=== PATIENT | female | born 1970 | race Caucasian/White ===

== ENCOUNTER 2018-06-25 23:49 | Emergency (ER) | payer SELFPAY ==
[2018-06-26 01:18] LABS: BASO # 0.1 10^3/uL (0.0-0.2); BASO % 0.6 % (0.0-1.0); EOS % 0.2 % (0.0-3.0); HEMATOCRIT 45.3 % (36.0-47.0); HEMOGLOBIN 16.2 g/dl (12.0-15.5); IMMATURE GRANULOCYTE % 0.6 % (0-3.0); LYMPH # 1.5 10^3/uL (1.5-4.5); LYMPH % 12.6 % (24.0-44.0); MEAN CORPUSCULAR HEMOGLOBIN 33.8 pg (27.0-33.0); MEAN CORPUSCULAR HGB CONC 35.8 g/dl (32.0-36.5); MEAN CORPUSCULAR VOLUME 94.6 fl (80.0-96.0); MONO # 0.8 10^3/uL (0.0-0.8); NEUTROPHILS # 9.6 10^3/uL (1.8-7.7); PLATELET COUNT, AUTOMATED 309 10^3/uL (150-450); RED BLOOD COUNT 4.79 10^6/uL (4.00-5.40); RED CELL DISTRIBUTION WIDTH 12.3 % (11.5-14.5); WHITE BLOOD COUNT 12.1 10^3/uL (4.0-10.0)
[2018-06-26] MEDS: METOCLOPRAMIDE INJ 10MG/2ML VIAL (J2765) IV (01:25)
[2018-06-26] MEDS: NS 1,000 ML IV (01:26)
[2018-06-26] MEDS: MORPHINE 4 MG/ML 1ML VIAL/SYRINGE (J2270) IV (01:26)
[2018-06-26 01:29] LABS: ALBUMIN 3.7 GM/DL (3.2-5.2); ALBUMIN/GLOBULIN RATIO 0.79 (1.00-1.93); ALKALINE PHOSPHATASE 122 U/L (45-117); ALT/SGPT 27 U/L (12-78); ANION GAP 16 MEQ/L (8-16); AST/SGOT 32 U/L (7-37); BILIRUBIN,DIRECT 0.1 MG/DL (0.0-0.2); BILIRUBIN,TOTAL 0.6 MG/DL (0.2-1.0); BLOOD UREA NITROGEN 13 MG/DL (7-18); CALCIUM LEVEL 9.6 MG/DL (8.5-10.1); CARBON DIOXIDE LEVEL 23 MEQ/L (21-32); CHLORIDE LEVEL 96 MEQ/L (98-107); CREATININE FOR GFR 0.56 MG/DL (0.55-1.30); ETHYL ALCOHOL (ETHANOL) 0.008 % (0.000-0.010); GLOMERULAR FILTRATION RATE > 60.0 (>58); GLUCOSE, FASTING 298 MG/DL (70-100); LIPASE 59 U/L (73-393); POTASSIUM SERUM 3.3 MEQ/L (3.5-5.1); SODIUM LEVEL 135 MEQ/L (136-145); TOTAL PROTEIN 8.4 GM/DL (6.4-8.2)
[2018-06-26 01:42] LABS: OSMOLALITY SERUM 298 MOSM/KG (275-295)
[2018-06-26 01:54] LABS: POS COUNT POS FLAG
[2018-06-26 02:01] LABS: LACTIC ACID SEPSIS PROTOCOL 1.4 MMOL/L (0.4-2.0)
[2018-06-26 02:17] LABS: VENOUS BASE EXCESS -4.5 (-2.0-2.0); VENOUS O2 SATURATION 95.5 % (60.0-80.0); VENOUS PARTIAL PRESSURE CO2 45.5 mmHg (38.0-50.0); VENOUS PARTIAL PRESSURE O2 83.4 mmHg (30.0-50.0); VENOUS PH 7.302 UNITS (7.330-7.430); VENOUS STANDARD HCO3 20.8 MEQ/L; VENOUS TOTAL CO2 23.4 MEQ/L (24.0-28.0)
[2018-06-26] MEDS ORDERED: ISOVUE-370 76% 100ML VIAL (Q9967) As Ordered (02:42)
[2018-06-26] MEDS: ONDANSETRON 4MG/2ML VIAL (J2405) IV (03:00)
== END 2018-06-26 05:39 | disposition home or self-care (01) ==
LOC: M ED 23:49
DX: K21.9 Gastro-esophageal reflux disease without esophagitis (principal); R93.2 Abnormal findings on diagnostic imaging of liver and biliary tract; E10.9 Type 1 diabetes mellitus without complications; Z79.899 Other long term (current) drug therapy; F17.210 Nicotine dependence, cigarettes, uncomplicated
CPT/HCPCS: J2270